=== PATIENT | male | born 1985 | race African-American/Black ===

== ENCOUNTER 2019-06-11 15:51 | Emergency (ER) | payer OTHER ==
[~2019-06-11] VITALS: Ht 167.6 cm; Wt 63.5 kg
[~2019-06-11 15:51] MED LIST: ACETAMINOPHEN-1 EAC1 PO; IBUPROFEN 800800 M1 PO; ROBAXIN 750 MG750 M1 PO
[2019-06-11] MEDS ORDERED: NOHOMEMEDICATIONS (16:16)
[2019-06-11 16:23] LABS: HEMATOCRIT 48.3 % (42.0-52.0); HEMOGLOBIN 16.3 gm/dL (14.0-18.0); MCH 31.5 pg (26.0-34.0); MCHC 33.8 g/dL (28.0-37.0); MCV 93.1 fL (80.0-100.0); PLATELET COUNT 225 thou/uL (150-400); RBC 5.19 mil/uL (4.50-6.00); RDW 13.4 % (10.5-14.5); WBC 7.1 thou/uL (4.0-11.0)
--- NOTE | 2019-06-11 16:23 | EKG ---
[facility] [place] [address] ELECTROCARDIOGRAM REPORT Name: FUNMI ORNELAS Room #: [facility].#: [id number] Admission: Attend Phys: Discharge: Date of : 89 Report #: [id number] THIS REPORT FOR: //name// [facility] ED Test Date: 2019-06-11 Test Time: 16:18:48 Pat Name: FUNMI ORNELAS Department: Room: Gender: Manager Integrated: CHIDI : 1985 Requested By: Tate Hernández Order Number: [id number] MD: Robe Abdi Measurements Intervals [place] Rate: 96 P: 38 NM: 136 QRS: 1 QRSD: 70 T: 54 QT: 320 QTc: 405 Interpretive Statements Sinus rhythm RSR' in V1 or V2, probably normal variant ST elev, probable normal early repol pattern No previous ECG available for comparison Electronically Signed On 06-11-2019 16:22:48 PROFESSOR OF COMMUNICATION by Robe Abdi [email or web address] <ELECTRONICALLY SIGNED> By: Robe Abdi MD, [facility] 06/11/19 1622 1618 1618 Robe Abdi MD, FACC /EPI
[2019-06-11 16:31] LABS: ANION GAP 3 mmol/L (7-16); BUN 18 mg/dL (7-18); CALCIUM 9.5 mg/dL (8.5-10.1); CHLORIDE 100 mmol/L (98-107); CO2 32 mmol/L (21-32); CREATININE 1.4 mg/dL (0.7-1.3); GLUCOSE 67 mg/dL (74-106); POTASSIUM 3.7 mmol/L (3.5-5.1); SODIUM 135 mmol/L (136-145)
[2019-06-11 16:41] LABS: ALBUMIN 4.2 g/dL (3.4-5.0); SALICYLATE < 2.8 mg/dL (2.8-20.0); SGOT 32 U/L (15-37); SGPT 29 U/L (30-65); TOTAL BILIRUBIN 0.8 mg/dL (<0.1-1.0); TOTAL PROTEIN 8.8 g/dL (6.4-8.2); TROPONIN-I <0.06 ng/mL (<0.06)
[2019-06-11 16:48] LABS: PLATELET ESTIMATE NORMAL
[2019-06-11 16:58] LABS: URINE BILIRUBIN NEGATIVE (Negative); URINE BLOOD NEGATIVE (Negative); URINE CLARITY CLEAR; URINE COLOR YELLOW; URINE GLUCOSE-RANDOM* NEGATIVE (Negative); URINE KETONES NEGATIVE (Negative); URINE NITRITE-REFLEX NEGATIVE (Negative); URINE PROTEIN (DIPSTICK) 2+ (Negative); URINE SPECIFIC GRAVITY >= 1.030 (1.005-1.035)
[2019-06-11 17:04] LABS: URINE LEUKOCYTES-REFLEX 1+ (Negative)
[2019-06-11 17:06] LABS: AMP/METHAMP POSITIVE (Negative); BARBITURATES Negative (Negative); BENZODIAZEPINES Negative (Negative); COCAINE Negative (Negative); METHADONE Negative (Negative); OPIATES Negative (Negative); PCP Negative (Negative)
[2019-06-11 17:17] LABS: BACTERIA-REFLEX 1-9 Few /HPF (None Seen); CASTS None Seen /LPF (None Seen); CRYSTALS None Seen /LPF (None Seen); SQUAMOUS None Seen /LPF (0-3); URINE RBC None Seen /HPF (0-2); URINE WBC-REFLEX 6-15 Few /HPF (0-5)
[2019-06-11 17:21] VITALS: BP 115/76
== END 2019-06-11 17:24 | disposition home or self-care (01) ==
LOC: ER 15:51
PROVIDERS: Emergency Medicine
DX: F15.921 Other stimulant use, unspecified with intoxication delirium (principal); F17.210 Nicotine dependence, cigarettes, uncomplicated; Z79.899 Other long term (current) drug therapy

== ENCOUNTER 2019-09-12 13:15 | Emergency (ER) | payer OTHER ==
[~2019-09-12] VITALS: Ht 167.6 cm; Wt 61.2 kg
[~2019-09-12 13:15] MED LIST changes: +NOHOMEMEDICATIONS
[2019-09-12 14:00] LABS: ABSOLUTE NEUTROPHILS 3.6 thou/uL (1.4-8.2); BASOPHILS 0.5 % (0.0-2.0); EOSINOPHILS 1.3 % (0.0-3.0); HEMATOCRIT 45.5 % (42.0-52.0); HEMOGLOBIN 15.4 gm/dL (14.0-18.0); LYMPHOCYTES 26.4 % (24.0-44.0); MCH 32.5 pg (26.0-34.0); MCHC 33.9 g/dL (28.0-37.0); MCV 95.9 fL (80.0-100.0); MONOCYTES 9.8 % (1.0-8.0); RBC 4.75 mil/uL (4.50-6.00); RDW 13.2 % (10.5-14.5); WBC 5.8 thou/uL (4.0-11.0)
[2019-09-12 14:09] LABS: ANION GAP 3 mmol/L (7-16); BUN 10 mg/dL (7-18); CALCIUM 8.7 mg/dL (8.5-10.1); CHLORIDE 99 mmol/L (98-107); CO2 33 mmol/L (21-32); CREATININE 1.1 mg/dL (0.7-1.3); GLUCOSE 84 mg/dL (74-106); SODIUM 135 mmol/L (136-145)
[2019-09-12 14:19] LABS: ALBUMIN 3.7 g/dL (3.4-5.0); SGOT 20 U/L (15-37); SGPT 20 U/L (30-65); TOTAL BILIRUBIN 0.4 mg/dL (<0.1-1.0); TOTAL PROTEIN 7.7 g/dL (6.4-8.2); TROPONIN-I <0.06 ng/mL (<0.06)
[2019-09-12 14:22] LABS: PLATELET COUNT 181 thou/uL (150-400)
[2019-09-12] MEDS ORDERED: CARAFATE 1 GM TA1 G1 PO (14:26)
[2019-09-12] MEDS ORDERED: OMEPRAZOLE 20 M20 M1 PO (14:26)
[2019-09-12 14:30] VITALS: BP 141/95
--- NOTE | 2019-09-13 07:57 | EKG ---
[facility] [place] [address] ELECTROCARDIOGRAM REPORT Name: FUNMI ORNELAS Room #: [facility]#: [id number] Admission: 09/12/19 Attend Phys: Discharge: 09/12/19 Date of : 89 Report #: [id number] THIS REPORT FOR: cc: PARDEEP - Gisella family physician/PCP PARDEEP - No family physician/PCP Robe Abdi MD [facility] THIS REPORT FOR: //name// [facility] ED Test Date: 2019-09-12 Test Time: 13:22:48 Pat Name: FUNMI ORNELAS Department: Room: Gender: [employer] Officer: [place] : 1985 Requested By: Lynette Mohr Order Number: [id number] MD: Robe Abdi Measurements Intervals [place] Rate: 76 P: 22 MN: 152 QRS: 11 QRSD: 84 T: 44 QT: 339 QTc: 382 Interpretive Statements Sinus rhythm ST elev, probable normal early repol pattern Compared to ECG 06/11/2019 16:18:48 No significant changes Electronically Signed On 09-13-2019 7:55:56 CDT by Robe Abdi [email or web address] <ELECTRONICALLY SIGNED> By: Robe Abdi MD, [facility] 09/13/19 0755 1322 1322 Robe Abdi MD, [facility] /EPI
== END 2019-09-12 14:30 | disposition home or self-care (01) ==
LOC: ER 13:15
PROVIDERS: Physician Assistant
DX: K29.70 Gastritis, unspecified, without bleeding (principal); R07.9 Chest pain, unspecified; I10 Essential (primary) hypertension; E11.9 Type 2 diabetes mellitus without complications; I25.2 Old myocardial infarction; F17.210 Nicotine dependence, cigarettes, uncomplicated; Z86.718 Personal history of other venous thrombosis and embolism

== ENCOUNTER 2019-10-31 12:48 | Emergency (ER) | payer OTHER ==
[~2019-10-31] VITALS: Ht 170.2 cm; Wt 61.2 kg
[~2019-10-31 12:48] MED LIST changes: +CARAFATE 1 GM TA1 G1 PO; +OMEPRAZOLE 20 M20 M1 PO
[2019-10-31] MEDS ORDERED: IBUPROFEN 600600 M1 PO (14:49)
[2019-10-31 14:50] VITALS: BP 125/67
== END 2019-10-31 15:04 | disposition home or self-care (01) ==
LOC: ER 12:48
DX: S86.911A Strain of unspecified muscle(s) and tendon(s) at lower leg level, right leg, initial encounter (principal); F17.210 Nicotine dependence, cigarettes, uncomplicated; X50.0XXA Overexertion from strenuous movement or load, initial encounter; Y93.89 Activity, other specified; Y92.69 Other specified industrial and construction area as the place of occurrence of the external cause; Y99.8 Other external cause status

== ENCOUNTER 2020-10-10 16:09 | Emergency (ER) | payer OTHER ==
[~2020-10-10] VITALS: Ht 167.6 cm; Wt 65.8 kg
[~2020-10-10 16:09] MED LIST changes: +IBUPROFEN 600600 M1 PO
[2020-10-10 18:39] VITALS: BP 154/97
== END 2020-10-10 18:31 | disposition home or self-care (01) ==
LOC: ER 16:09
DX: S09.90XA Unspecified injury of head, initial encounter (principal); H61.23 Impacted cerumen, bilateral; F17.210 Nicotine dependence, cigarettes, uncomplicated; W22.8XXA Striking against or struck by other objects, initial encounter; Y93.89 Activity, other specified; Y92.89 Other specified places as the place of occurrence of the external cause; Y99.9 Unspecified external cause status

== ENCOUNTER 2021-01-11 13:49 | Emergency (ER) | payer BC ==
[~2021-01-11] VITALS: Ht 170.2 cm; Wt 68.0 kg
[2021-01-11 15:35] VITALS: BP 107/69
== END 2021-01-11 15:36 | disposition home or self-care (01) ==
LOC: ER 13:49
DX: S61.216A Laceration without foreign body of right little finger without damage to nail, initial encounter (principal); F17.210 Nicotine dependence, cigarettes, uncomplicated; W25.XXXA Contact with sharp glass, initial encounter; Y93.89 Activity, other specified; Y92.89 Other specified places as the place of occurrence of the external cause; Y99.8 Other external cause status